=== PATIENT | male | born 1970 | race Caucasian/White ===

== ENCOUNTER 2017-03-11 06:33 | Emergency (ER) | payer MEDICAID ==
[~2017-03-11 06:33] MED LIST: COLACE100 MG PO; NOR10T PO
[2017-03-11 06:45] VITALS: BP 111/78
== END 2017-03-11 07:21 | disposition home or self-care (01) ==
LOC: ED 06:33
DX: T15.01XA Foreign body in cornea, right eye, initial encounter (principal); X58.XXXA Exposure to other specified factors, initial encounter; Y93.89 Activity, other specified; Y92.89 Other specified places as the place of occurrence of the external cause; Y99.8 Other external cause status